=== PATIENT | female | born 1935 | race Caucasian/White ===

== ENCOUNTER 2019-09-24 13:27 | Outpatient (CLI) | payer MEDICARE, OTHER, SELFPAY ==
--- NOTE | 2019-09-24 13:32 | CT_ITS ---
WS: [id number] CT HEAD NONCONTRAST HISTORY: MILD COGNITIVE IMPAIRMENT TECHNIQUE: Contiguous axial imaging performed through the brain in 2.5 mm imaging. Bone and soft tiss ue windows. Sagittal and coronal reformats reviewed. All CT scans at [facility] use at ast one of these dose optimization techniques: automated exposure control; mA and/or kV adjustment pe r patient size (includes targeted exams where dose is matched to clinical indication); or iterative r econstruction. DLP: 835.11 mGy.cm COMPARISON: None available. No acute intracranial hemorrhage, midline shift or mass effect. Mild atrophy and mild chronic microvascular ischemic disease. No sulcal effacement or recent infarct. Ventricles: Normal size with no hydrocephalus. No inferior displacement of cerebellar tonsils. Moderate atherosclerosis in the vertebral arteries. Paranasal sinuses: As visualized are clear. Mastoid air cells: Well pneumatized. Calvarium and scalp: Skull is intact with no soft tissue edema or swelling. CT/CT head wo con* [id number] IMPRESSION: 1. Mild atrophy and mild chronic microvascular ischemic disease. 2. No acute infarct or hemorrhage. 3. Moderate distal carotid artery atherosclerosis.
== END 2019-09-24 13:28 | disposition home or self-care (01) ==
LOC: RAD 13:28
PROVIDERS: Family Provider Nurse Practitioner; PCP Nurse Practitioner; Visit Provider Nurse Practitioner
DX: G31.84 Mild cognitive impairment of uncertain or unknown etiology (principal); I65.29 Occlusion and stenosis of unspecified carotid artery
CPT/HCPCS: 70450

== ENCOUNTER 2023-02-06 11:09 | Outpatient (CLI) | payer MEDICARE, SELFPAY ==
--- NOTE | 2023-02-06 11:16 | XR_ITS ---
WS: [id number] EXAMINATION: XR knee RT 3V* [id number] REASON FOR EXAM: M25.561 - Pain in right knee COMPARISON: None available. ORDER DATE: 02/06/2023 11:26 AM FINDINGS: There are marginal osteophytes associated with the tibial spines, patella and other articular margins with patellofemoral compartment narrowing. There is chondrocalcinosis. This is mostly occurring in t he lateral meniscus. There is no sign of any acute fracture or dislocation. A moderate joint effusion cannot be excluded with increased opacity noted in the popliteal space. In addition to the fabella t here is an additional similar appearing calcification more posteriorly perhaps a loose body or capsul ar calcification. XR/XR knee RT 3V* [id number] IMPRESSION: PATELLOFEMORAL COMPARTMENT NARROWING WITH OSTEOARTHRITIC AND OTHER CHRONIC ASHER GES.
== END 2023-02-06 11:10 | disposition home or self-care (01) ==
LOC: RAD 11:10
PROVIDERS: Family Provider Nurse Practitioner; PCP Nurse Practitioner; Visit Provider Registered Nurse
DX: M17.11 Unilateral primary osteoarthritis, right knee (principal); M22.2X1 Patellofemoral disorders, right knee
CPT/HCPCS: 73562

== ENCOUNTER → 2023-12-04 11:20 | Outpatient (BNVA) | payer MEDICARE, SELFPAY | PROVIDERS: Family Provider Nurse Practitioner; PCP Nurse Practitioner Family; Visit Provider Nurse Practitioner Family | DX: I10 Essential (primary) hypertension (principal); R53.83 Other fatigue | CPT/HCPCS: 80053; 80061; 84439; 84443; 85025 ==

== ENCOUNTER → 2024-01-16 10:06 | Outpatient (BNVA) | payer MEDICARE, SELFPAY | PROVIDERS: Family Provider Nurse Practitioner; PCP Nurse Practitioner Family; Visit Provider Nurse Practitioner Family | DX: E03.9 Hypothyroidism, unspecified (principal); R42 Dizziness and giddiness; R35.0 Frequency of micturition | CPT/HCPCS: 80053; 84443; 85025 ==